=== PATIENT | male | born 1980 | race Caucasian/White ===

== ENCOUNTER 2018-07-10 09:42 | Emergency (ER) | payer MEDICAID ==
[2018-07-10] MEDS ORDERED: Aspirin 81 MG Tab.Chew PO ONE (09:53)
--- NOTE | 2018-07-10 10:09 | CR ---
Clinical history: 38-year-old male with chest pain Interpretation: Generally poor inspiratory effort, obese male but cardiac silhouette is normal and unchanged since 16 May 2008. 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 No cephalization of vascular flow alveolar edema or dependent pleural effusion. Note: *New density (masslike infiltrate or atelectasis) in the periphery of the left midlung and relative slight elevation of the ipsilateral hemidiaphragm. Significance? No sign of other lung mass, hilar lymphadenopathy or focal lobar pneumonia. No other atelectasis/collapse. No pneumothorax or free subdiaphragmatic air.
[2018-07-10 10:23] LABS: ANION GAP 15.1; CHLORIDE,CL 102 mmol/L (101-111); SODIUM,NA 133 mmol/L (135-145)
--- NOTE | 2018-07-10 10:31 | EDM.PDOC ---
ED HPI GENERAL MEDICAL PROBLEM - General Chief Complaint: Chest Pain Stated Complaint: ESSIE PAINS SHOOTING INTO BACK Time Seen by Provider: 07/10/18 10:25 Source of Information: Reports: Patient History Limitations: Reports: No Limitations - History of Present Illness INITIAL COMMENTS - FREE TEXT/NARRATIVE: This 38 yo male patient reports to the ED with chest pain. The patient reports his pain started this morning at about 0900, but is resolved at time of examination. The patient describes his pain as a "sharp, stabbing pain" from the center of his chest through to his back. The patient reports he does have acid reflux, but his symptoms today were very different. Onset: Today Onset Date: 07/10/18 Onset Time: 09:00 Duration: Resolved Prior to Arrival Location: Reports: Chest Quality: Reports: Ache, Sharp, Stabbing Severity: Moderate Improves with: Reports: None Worsens with: Reports: None Associated Symptoms: Reports: Chest Pain Mid-Sternal Chest Pain Score (Numeric/FACES): 7 - Related Data Allergies Allergy/AdvReac Type Severity Reaction Status Date / Time No Known Allergies Allergy Verified 07/10/18 09:52 Home Meds: Home Meds . [No Known Home Meds] 09/17/15 [History] Past Medical History HEENT History: Reports: None Cardiovascular History: Reports: None Respiratory History: Reports: None Gastrointestinal History: Reports: None Genitourinary History: Reports: None Musculoskeletal History: Reports: None Neurological History: Reports: None Psychiatric History: Reports: None Endocrine/Metabolic History: Reports: None Hematologic History: Reports: None Immunologic History: Reports: None Oncologic (Cancer) History: Reports: None - Infectious Disease History Infectious Disease History: Reports: Chicken Pox - Past Surgical History Head Surgeries/Procedures: Reports: None Social & Family History - Tobacco Use Smoking Status *Q: Current Every Day Smoker Years of Tobacco use: 20 Packs/Tins Daily: 0.5 - Caffeine Use Caffeine Use: Reports: Coffee - Recreational Drug Use Recreational Drug Use: No ED ROS GENERAL - Review of Systems Review Of Systems: ROS reveals no pertinent complaints other than HPI. ED EXAM, GENERAL - Physical Exam Exam: See Below Exam Limited By: No Limitations General Appearance: Alert, WD/WN, Moderate Distress Eye Exam: Bilateral Eye: EOMI, Normal Inspection, PERRL Ears: Normal External Exam, Normal Canal, Hearing Grossly Normal, Normal TMs Nose: Normal Inspection, Normal Mucosa, No Blood Throat/Mouth: Normal Inspection, Normal Lips, Normal Teeth, Normal Gums, Normal Oropharynx, Normal Voice, No Airway Compromise Head: Atraumatic, Normocephalic Neck: Normal Inspection, Supple, Non-Tender, Full Range of Motion Respiratory/Chest: No Respiratory Distress, Lungs Clear, Normal Breath Sounds, No Accessory Muscle Use, Chest Non-Tender Cardiovascular: Normal Peripheral Pulses, Regular Rate, Rhythm, No Edema, No Gallop, No JVD, No Murmur, No Rub GI/Abdominal: Normal Bowel Sounds, Soft, Non-Tender, No Organomegaly, No Distention, No Abnormal Bruit, No Mass (Male) Exam: Deferred Rectal (Males) Exam: Deferred Back Exam: Normal Inspection, Full Range of Motion, NT Extremities: Normal Inspection, Normal Range of Motion, Non-Tender, Normal Capillary Refill, No Pedal Edema Neurological: Alert, Oriented, CN II-XII Intact, Normal Cognition, Normal Gait, Normal Reflexes, No Motor/Sensory Deficits Psychiatric: Normal Affect, Normal Mood Skin Exam: Warm, Dry, Intact, Normal Color, No Rash Lymphatic: No Adenopathy Course - Vital Signs Last Recorded V/S: Last Vital Signs Temp 36.7 C 07/10/18 09:47 Pulse 71 07/10/18 13:18 Resp 17 07/10/18 13:18 BP 103/59 L 07/10/18 13:18 Pulse Ox 95 07/10/18 13:18 - Orders/Labs/Meds Orders: Active Orders 24 hr Category Date Time Status EKG Documentation Completion [RC] ROUTINE Care 07/10/18 14:00 Ordered EKG Documentation Completion [RC] URGENT Care 07/10/18 09:53 Active Labs: Laboratory Tests 07/10/18 07/10/18 07/10/18 Range/Units 09:53 09:53 13:51 WBC 10.7 H (5.0-10.0) 10^3/uL RBC 5.36 (4.6-6.2) 10^6/uL Hgb 17.2 (14.0-18.0) g/dL Hct 49.0 (40.0-54.0) % MCV 91.4 (80-100) fL MCH 32.1 (27.0-34.0) pg MCHC 35.1 H (33.0-35.0) g/dL Plt Count 310 (150-450) 10^3/uL Neut % (Auto) 66.1 (42.2-75.2) % Lymph % (Auto) 24.0 (20.5-50.1) % Burn[place] % (Auto) 8.9 H (2-8) % Eos % (Auto) 0.8 L (1.0-3.0) % Baso % (Auto) 0.2 (0.0-1.0) % Sodium 133 L (135-145) mmol/L Potassium 4.1 (3.6-5.0) mmol/L Chloride 102 (101-111) mmol/L Carbon Dioxide 20.0 L (21.0-31.0) mmol/L Anion Gap 15.1 BUN 16 (7-18) mg/dL Creatinine 0.7 (0.6-1.3) mg/dL Est Cr Clr Drug Dosing 144.84 mL/min Estimated GFR (MDRD) > 60 BUN/Creatinine Ratio 22.85 Glucose 88 (74-105) mg/dL Calcium 9.2 (8.4-10.2) mg/dl Total Bilirubin 1.0 (0.2-1.0) mg/dL AST 21 (10-42) IU/L ALT 18 (10-60) IU/L Alkaline Phosphatase 84 (42-121) IU/L Troponin I < 0.02 < 0.02 (0.00-0.02) ng/ml Total Protein 7.5 (6.7-8.2) g/dl Albumin 4.3 (3.2-5.5) g/dl Globulin 3.2 Albumin/Globulin Ratio 1.34 Meds: Medications Discontinued Medications Generic Name Dose Route Start Last Admin Trade Name Freq PRN Reason Stop Dose Admin Aspirin 324 mg 07/10/18 09:53 07/10/18 09:56 Aspirin PO 07/10/18 09:54 324 mg ONETIME ONE Administration Departure - Departure Time of Disposition: 14:43 Disposition: Home, Self-Care 01 Condition: Fair Clinical Impression: Nonspecific chest pain Instructions: Nonspecific Chest Pain Forms: ED Department Discharge Care Plan Goals: The patient was advised of the examination, EKG, lab, x-ray, repeat EKG and repeat lab results during the visit. The patient was given an oral dose of Aspirin while in the ED. The patient reports no return of his chest pain during the visit in the ED. The patient was encouraged to continue to monitor for any additional symptoms. The patient was advised to take his medications for heartburn. If the patient has any additional symptoms or further concerns, the patient should either return to the emergency department or visit his primary care facility. - My Orders Last 24 Hours: My Active Orders 07/10/18 09:53 EKG Documentation Completion [RC] URGENT 07/10/18 14:00 EKG Documentation Completion [RC] ROUTINE - Assessment/Plan Last 24 Hours: My Active Orders 07/10/18 09:53 EKG Documentation Completion [RC] URGENT 07/10/18 14:00 EKG Documentation Completion [RC] ROUTINE
[2018-07-10 14:55] VITALS: BP 109/66
== END 2018-07-10 14:53 | disposition home or self-care (01) ==
LOC: DL.ED 09:42
DX: R07.2 Precordial pain (principal); F17.210 Nicotine dependence, cigarettes, uncomplicated
CPT/HCPCS: 36415; 71045; 80053; 84484; 85025; 93005; 99285; A9270

== ENCOUNTER 2019-10-24 14:09 | Emergency (ER) | payer OTHER, MEDICAID ==
[2019-10-24 14:46] VITALS: BP 137/78; PULSE 85
[2019-10-24] MEDS ORDERED: Diphtheria,Pertussis(Acell),Tetanus Vaccine 0.5 ML SDV IM ONE (14:57)
--- NOTE | 2019-10-24 14:57 | EDM.PDOC ---
ED HPI GENERAL MEDICAL PROBLEM - General Chief Complaint: Laceration Stated Complaint: FINGER LACERATION Time Seen by Provider: 10/24/19 14:57 Source of Information: Reports: Patient, RN, RN Notes Reviewed History Limitations: Reports: No Limitations - History of Present Illness INITIAL COMMENTS - FREE TEXT/NARRATIVE: Pt presents to ER with c/o cutting a flap to the left distal index finger on broken glass at work. Pt works at [employer]. He denies any other injury. Last Tetanus vaccine was >10yrs ago. Onset: Today Duration: Constant Quality: Reports: Ache Severity: Mild Improves with: Reports: None Worsens with: Reports: None Left Finger-Index Pain Score (Numeric/FACES): 2 - Related Data Allergies Allergy/AdvReac Type Severity Reaction Status Date / Time No Known Allergies Allergy Verified 10/24/19 14:46 Home Meds: Home Meds . [No Known Home Meds] 09/17/15 [History] Past Medical History HEENT History: Reports: None Cardiovascular History: Reports: None Respiratory History: Reports: None Gastrointestinal History: Reports: None Genitourinary History: Reports: None Musculoskeletal History: Reports: None Neurological History: Reports: None Psychiatric History: Reports: None Endocrine/Metabolic History: Reports: None Hematologic History: Reports: None Immunologic History: Reports: None Oncologic (Cancer) History: Reports: None Dermatologic History: Reports: None - Infectious Disease History Infectious Disease History: Reports: Chicken Pox - Past Surgical History Head Surgeries/Procedures: Reports: None Social & Family History - Tobacco Use Smoking Status *Q: Current Every Day Smoker Years of Tobacco use: 20 Packs/Tins Daily: 0.5 Second Hand Smoke Exposure: No - Caffeine Use Caffeine Use: Reports: Coffee, Soda - Recreational Drug Use Recreational Drug Use: No - Living Situation & Occupation Occupation: Employed ED ROS GENERAL - Review of Systems Review Of Systems: Comprehensive ROS is negative, except as noted in HPI. ED EXAM, SKIN/RASH Exam: See Below Exam Limited By: No Limitations General Appearance: Alert, WD/WN, No Apparent Distress Respiratory/Chest: No Respiratory Distress Cardiovascular: Normal Peripheral Pulses Extremities: Normal Range of Motion, Normal Capillary Refill, Other (2cm superficial flap laceration to the distal pad or the left index finger, no active bleeding, no FB) Neurological: Alert, No Motor/Sensory Deficits Psychiatric: Normal Mood Skin: Warm, Dry Course - Vital Signs Last Recorded V/S: Last Vital Signs Temp 98.5 F 10/24/19 14:35 Pulse 85 10/24/19 14:35 Resp 16 10/24/19 14:35 BP 137/78 10/24/19 14:35 Pulse Ox 97 10/24/19 14:35 - Orders/Labs/Meds Orders: Active Orders 24 hr Category Date Time Status Steristrips, Apply [RC] ASDIRECTED Care 10/24/19 14:57 Active Vaccines to be Administered [RC] PER UNIT ROUTINE Care 10/24/19 14:57 Active Meds: Medications Discontinued Medications Generic Name Dose Route Start Last Admin Trade Name Freq PRN Reason Stop Dose Admin Diphtheria/Tetanus/Acell Pertussis 0.5 ml 10/24/19 14:57 10/24/19 15:12 Adacel IM 10/24/19 14:58 0.5 ml .ONCE ONE Administration - Re-Assessments/Exams Free Text/Narrative Re-Assessment/Exam: 10/25/19 07:13 No procedural wound care by physician. Steri-strips applied by RN after wound was cleansed. Dressing applied by RN. Departure - Departure Time of Disposition: 15:08 Disposition: Home, Self-Care 01 Condition: Good Clinical Impression: Laceration of left index finger w/o foreign body w/o damage to nail Qualifiers: Encounter type: initial encounter Qualified Code(s): S61.211A - Laceration without foreign body of left index finger without damage to nail, initial encounter - Discharge Information *PRESCRIPTION DRUG MONITORING PROGRAM REVIEWED*: Not Applicable *COPY OF PRESCRIPTION DRUG MONITORING REPORT IN PATIENT [place]: Not Applicable Instructions: Sutures, [place], or Adhesive Wound Closure, [id number] Referrals: PCP,None [Primary Care Provider] - Forms: ED Department Discharge Additional Instructions: Keep finger wound clean and as dry as possible. Follow up in clinic if needed. Sepsis Event Note - Evaluation Sepsis Screening Result: No Definite Risk - Focused Exam Date Exam was Performed: 10/25/19 Time Exam was Performed: 07:10 - My Orders Last 24 Hours: My Active Orders 10/24/19 14:57 Steristrips, Apply [RC] ASDIRECTED Vaccines to be Administered [RC] PER UNIT ROUTINE - Assessment/Plan Last 24 Hours: My Active Orders 10/24/19 14:57 Steristrips, Apply [RC] ASDIRECTED Vaccines to be Administered [RC] PER UNIT ROUTINE
== END 2019-10-24 15:24 | disposition home or self-care (01) ==
LOC: DL.ED 14:09
DX: S61.211A Laceration without foreign body of left index finger without damage to nail, initial encounter (principal); F17.210 Nicotine dependence, cigarettes, uncomplicated; Z23 Encounter for immunization; W25.XXXA Contact with sharp glass, initial encounter; Y99.0 Civilian activity done for income or pay
CPT/HCPCS: 90471; 90715; 99282